=== PATIENT | female | born 1980 | race Caucasian/White ===

== ENCOUNTER 2017-04-05 09:20 | Emergency (ER) | payer MEDICAID ==
[~2017-04-05] VITALS: Ht 147.3 cm; Wt 120.0 kg
[2017-04-05] MEDS ORDERED: LORA10TA7 PO (09:22)
[2017-04-05] MEDS ORDERED: ALBUTEROL SULFATE 2.5 MG/0.5 ML NEB SOLUTION NEB ONE (09:30)
[2017-04-05] MEDS ORDERED: IPRATROPIUM BROMIDE 0.5 MG/2.5 ML NEB SOLUTION NEB ONE (09:30)
[2017-04-05] MEDS ORDERED: PredniSONE 20 MG TABLET PO ONE (10:15)
[2017-04-05] MEDS ORDERED: GuaiFENesin/D-METHORPHAN [SUGAR-FREE] 200-20MG/10 ML SYRUP UDCUP PO ONE (10:15)
[2017-04-05 10:44] VITALS: BP 134/84
== END 2017-04-05 10:46 | disposition home or self-care (01) ==
LOC: EMS 09:22
DX: J45.909 Unspecified asthma, uncomplicated (principal); R03.0 Elevated blood-pressure reading, without diagnosis of hypertension; J00 Acute nasopharyngitis [common cold]; G43.909 Migraine, unspecified, not intractable, without status migrainosus; Z87.891 Personal history of nicotine dependence
CPT/HCPCS: 94640; 99283; J7512; J7613

== ENCOUNTER 2017-05-02 17:24 | Emergency (ER) | payer MEDICAID ==
[~2017-05-02] VITALS: Ht 147.3 cm; Wt 119.1 kg
[~2017-05-02 17:24] MED LIST: LORA10TA7 PO
[2017-05-02] MEDS ORDERED: ALBU8.5H8 IH (17:33)
[2017-05-02] MEDS ORDERED: IPRATROPIUM BROMIDE 0.5 MG/2.5 ML NEB SOLUTION NEB ONE (18:15)
[2017-05-02] MEDS ORDERED: ALBUTEROL SULFATE 2.5 MG/0.5 ML NEB SOLUTION NEB ONE ×2 (18:15→18:45)
[2017-05-02] MEDS ORDERED: MethylPREDNISolone SOD SUCC 125 MG/2 ML VIAL IM ONE (18:45)
[2017-05-02] MEDS ORDERED: 0.9% SODIUM CHLORIDE 5 ML NEB SOLUTION NEB ONE (18:57)
[2017-05-02 21:01] VITALS: BP 143/89
== END 2017-05-02 21:27 | disposition home or self-care (01) ==
LOC: EMS 17:32
DX: J45.901 Unspecified asthma with (acute) exacerbation (principal); J06.9 Acute upper respiratory infection, unspecified; J20.9 Acute bronchitis, unspecified; J02.9 Acute pharyngitis, unspecified; G43.909 Migraine, unspecified, not intractable, without status migrainosus; Z87.891 Personal history of nicotine dependence
CPT/HCPCS: 71010; 81025; 94640; 96372; 99284; J2930; J7613